=== PATIENT | male | born 1990 | race African-American/Black ===

== ENCOUNTER 2017-03-16 11:38 | Emergency (ER) | payer OTHER ==
[~2017-03-16] VITALS: Ht 170.2 cm; Wt 78.5 kg
[~2017-03-16 11:38] MED LIST: TYLENOL WITH C1 EACH PO; VALTREX1000 MG PO
[2017-03-16 12:26] LABS: HEMATOCRIT 43.6 % (38.0-50.0); HEMOGLOBIN 14.9 G/DL (12.5-16.6); MCH 29.5 PG (29.0-34.0); MCHC 34.2 G/DL (30.0-36.0); MCV 86.3 FL (86-99); PLATELET COUNT 252 K/uL (156-360); RBC DIS.WIDTH-CV 13.2 % (11.8-14.6); RBC DIS.WIDTH-SD 41.3 % (39-53); RED BLOOD COUNT 5.05 M/uL (4.00-5.50); WHITE BLOOD COUNT 4.6 K/uL (4.1-10.2)
[2017-03-16 12:38] LABS: ALBUMIN 4.7 g/dL (3.2-4.8); CHLORIDE 101 mEq/L (99-109); POTASSIUM 4.5 mEq/L (3.7-5.4); SODIUM 137 mEq/L (136-147)
[2017-03-16 12:40] LABS: GLUCOSE 114 mg/dL (70-99)
[2017-03-16 12:41] LABS: TOTAL PROTEIN 8.5 g/dL (6.4-8.3)
[2017-03-16 12:42] LABS: TOTAL BILIRUBIN 0.5 mg/dL (0.0-1.0)
[2017-03-16 12:44] LABS: ALKALINE PHOSPHATASE 93 IU/L (3-129); CREATININE 1.2 mg/dL (0.6-1.3); GFR ESTIMATE (CALCULATED) > 59 mL/min/ (58.99-99999)
[2017-03-16 12:45] LABS: UREA NITROGEN (BUN) 9 mg/dL (9-23)
[2017-03-16 12:46] LABS: AST (GOT) 28 IU/L (2-34)
[2017-03-16 12:47] LABS: ALT (GPT) 24 IU/L (3-49)
[2017-03-16 14:37] LABS: APPEARANCE CLEAR ((CLEAR)); BILIRUBIN NEGATIVE; BLOOD NEGATIVE; COLOR YELLOW ((YELLOW)); GLUCOSE (STRIP) NEGATIVE; KETONES NEGATIVE; LEUKOCYTES NEGATIVE; NITRITE NEGATIVE; PROTEIN (STRIP) 30; SPECIFIC GRAVITY 1.017 (1.000-1.030); UCUL ADDED? NO; UROBILINOGEN 0.2 MG/DL (0.2-1.0)
[2017-03-16] MEDS ORDERED: AMOXICILLIN500 M1 PO (15:44)
[2017-03-16] MEDS ORDERED: TETCAINE15 ML BOTH EARS (15:46)
[2017-03-16 15:58] VITALS: BP 118/78
== END 2017-03-16 16:00 | disposition home or self-care (01) ==
LOC: EME 11:38
DX: H66.92 Otitis media, unspecified, left ear (principal); B20 Human immunodeficiency virus [HIV] disease; F17.200 Nicotine dependence, unspecified, uncomplicated; Z88.1 Allergy status to other antibiotic agents
CPT/HCPCS: 80053; 81003; 85027; 87651 90; 99281; 99284